=== PATIENT | male | born 1965 | race Asian ===

== ENCOUNTER → 2024-09-06 | Outpatient (CLI) | payer BC, SELFPAY ==
[2024-09-06 11:41] LABS: Albumin, Serum 4.6 gm/dL (3.4-4.8); Anion Gap 5 (7-16); BUN/Creatinine Ratio 24 Ratio (12-20); Blood Urea Nitrogen 19 mg/dL (9-23); Calcium 9.9 mg/dL (8.3-10.6); Calcium (Corrected) 9.9 mg/dL (8.5-10.1); Carbon Dioxide 22.7 mMol/L (20.0-31.0); Chloride 108 mMol/L (98-107); Creatinine (Component) 0.8 mg/dL (0.6-1.3); Glucose 92 mg/dL (74-106); Osmolality,Calculated 274 (275-295); Phosphorous 2.9 mg/dL (2.4-5.1); Potassium 4.3 mMol/L (3.4-5.1); Sodium 136 mMol/L (136-145); eGFR > 60 See Note
== END | disposition home or self-care (01) ==
LOC: COPL 10:18
PROVIDERS: PCP Internal Medicine; Referring Provider Surgery; Visit Provider Surgery
DX: C61 Malignant neoplasm of prostate (principal)
CPT/HCPCS: 36415; 80069

== ENCOUNTER → 2024-10-10 | Outpatient (CLI) | payer BC, SELFPAY ==
[2024-10-10 10:28] LABS: Prostate Specific Antigen 1.23 ng/mL (0-4.00)
--- NOTE | 2024-10-10 12:00 | XR_ITS ---
Examination: CT abdomen with intravenous contrast CT pelvis with intravenous contrast 2-D coronal reconstructions 2-D sagittal reconstructions Date and time of exam:October 10, 2024 1209 hours INDICATIONS: Diagnosis malignant neoplasm prostate 4 years ago, pelvic pain 2 months, restaging COMPARISON: October 09, 2020. CTDI: vol (mGy) 6.11 DLP: (mGycm) 329 Technique: Multiple axial sections of the abdomen and pelvis have been obtained. 64 slice high-resolution scanner used. 3 mm axial sections have been obtained, post intravenous injection 60 cc Isovue-370 2-D sagittal, coronal reconstructions obtained. Low dose protocols were performed. One or more of the following dose reduction techniques were used; automated exposure control, adjustment of the mA and/or KV according to patient size, use of iterative reconstruction technique. Findings: 15 mm liver cyst No gallstones Spleen not enlarged No pancreatic or adrenal mass Abdominal aorta normal size No hydronephrosis No abdominal lymphadenopathy Normal appendix No pelvic lymphadenopathy Intact urinary bladder Prostate tissue not clearly depicted Moderate osteopenia All bones exhibit diffuse subtle sclerosis More prominent sclerosis involving the entire posterior left iliac bone axial image 200 IMPRESSION: Widespread osseous metastatic disease, most prominent posterior left iliac bone
== END | disposition home or self-care (01) ==
LOC: CCTX 09:46 → COPL 09:52 → CCTX 10-16 06:35
PROVIDERS: Referring Provider Surgery; Visit Provider Surgery
DX: C79.9 Secondary malignant neoplasm of unspecified site (principal); C61 Malignant neoplasm of prostate
CPT/HCPCS: 36415; 74177; 84153; A4649; Q9967

== ENCOUNTER → 2024-10-23 | Outpatient (CLI) | payer BC, SELFPAY ==
--- NOTE | 2024-10-23 12:30 | XR_ITS ---
Examination: Bone scan whole body, radioisotope Date and time of exam: October 23, 2024 1202 hours INDICATIONS: Diagnosis malignant neoplasm prostate post surgery 2020, shoulder pain after falling yesterday Technique: Study has been performed with intravenous administration of 23.5 mci 99M technetium MDP. Anterior, posterior whole body images are obtained. Images have been obtained including the lower extremities. Findings: Prominent focus increased isotope accumulation left pelvis, please see the CT pelvis report October 10, 2024 Shoulder uptake is symmetrical IMPRESSION: Positive bone scan, large focus of abnormal increased isotope accumulation left pelvis
== END | disposition home or self-care (01) ==
LOC: SNUC 08:12
PROVIDERS: PCP Internal Medicine; Referring Provider Surgery; Visit Provider Surgery
DX: R93.7 Abnormal findings on diagnostic imaging of other parts of musculoskeletal system (principal); C61 Malignant neoplasm of prostate
CPT/HCPCS: 78306; A9503

== ENCOUNTER → 2025-01-25 | Outpatient (CLI) | payer BC, SELFPAY ==
[2025-01-25 10:44] LABS: Prostate Specific Antigen < 0.10 ng/mL (0-4.00)
== END | disposition home or self-care (01) ==
LOC: COPL 09:45
PROVIDERS: PCP Internal Medicine; Referring Provider Surgery; Visit Provider Surgery
DX: C61 Malignant neoplasm of prostate (principal)
CPT/HCPCS: 36415; 84153

== ENCOUNTER 2025-03-07 08:00 | Outpatient (RCR) | payer BC, SELFPAY ==
--- NOTE | 2025-03-07 09:20 | CTCCONSULT_ITS ---
[facility] [address] [place], [place] [address] Consultation Note Date: 03/07/2025 MR#: [id number] Name: SABRINA DUNBAR : 1965 Dx: C61 Malignant neoplasm of prostate Referring physician. Moises Jo MD Reason for consultation. Patient with bone mets from prostate primary referred for ration oncology consultation. History of Present Illness: Patient with prostate CA with bone mets. Initial diagnosis made 09/06/2020, Brittany's grade 9 (4+5) right lobe and [place]'s grade 7 (4+3) left lobe. With PSA 31.4. Had surgery at [facility] November 2020 according to patient, and no immediate adjuvant therapy was recommended. Most recent CT abdomen pelvis 09/30/24 showed widespread osseous mets disease most prominent posterior left iliac bone. Bone scan 10/23/2024 large focus of abnormal increased isotope accumulate left pelvis. Most recent PSA less than 0.10 on 01/25/2025. Patient has recently had Lupron and Casodex initiated by Dr. Jo. Patient is now referred for palliative radiotherapy to the pelvic bony site.. Past Medical History: Surgery left lower extremity for fracture related to trauma 2019. Meds. Atorvastatin Lupron 7.5 mg monthly Casodex 50 mg a day Family history. Father had prostate cancer Brother had sinus cancer. Social History: Patient self-employed lives in [place] Review of Systems: Has mild pain relieved with OTC meds. Physical Exam: General: Adequate nourished appearing gentleman in no acute distress HEENT: Atraumatic normocephalic extraocular was intact no oral lesion no cervical or supraclavicular adenopathy CV: Chest clear to auscultation heart regular rate and rhythm ABD: Soft no organomegaly or tenderness EXT: No signs of clubbing or edema Assessment: 1. Patient with history of prostate CA, grade 9 and grade 7 right and left prostate lobes respectively. Robotic surgery [facility] November 2020. 2. Bone mets with significant involvement of left posterior ilium recent imaging studies. 3. Radiation therapy 3000 cGy via VMAT 10 fractions will be planned for patient. 4. Currently on Casodex and Lupron with most recent PSA less than 0.23 January 2025. 5 Thank you very much for allowing me to evaluate and manage this patient.. Cc: Moises Jo MD Electronically signed by: Cody Lopez MD, DABR 03/07/2025 9:18 AM
--- NOTE | 2025-03-07 09:21 | CTCTXPLN_ITS ---
[facility] [address] [place], [place] [address] Physician Clinical Treatment Planning Note Date of Service: 03/07/2025 Name: SABRINA DUNBAR D.O.B.: 1965 The patient has agreed to proceed with Radiation therapy. Tests and supporting medical records were interpreted to assist in defining the tumor location and extent of disease. Further imaging will be necessary to contour and delineate the volume to which the XRT will be provided. A. Treatment Intent: Palliative B. Modality: 6 MV C. Requested Technique: VMAT D. Treatment Site: Pelvis E. Critical structures to be contoured on plan: F. In order to accomplish this plan, I am ordering/Prescribing the followin. Simulations (s) will be performed to accomplish a reproducible treatment position, to determine optimal treatment portals/beam arrangements, to design beam modifying devices and verify treatment portals on patient prior to the commencement of Radiation Therapy. Pelvis 2. Devices; for immobilization and beam shaping: Vac-Rosita 3. CT Guidance for placement of XRT de santiago Scan area: 4. Portal images Frequency: 5. Invivo transit dose measurement once per week on all VMAT patients. 6. Special Physics Consult Requested for: 7. Other requests: G. Dose Objectives: Palliative Electronically signed by: Cody Lopez M.D. 03/07/2025 9:19 AM
--- NOTE | 2025-03-07 09:22 | CTCTXPLNST_ITS ---
Radiation Oncology Treatment Planning Sheet Name: SABRINA DUNBAR MR#: [id number] : 1965 Dx: C61 Malignant neoplasm of prostate Date of Service: 03/07/2025 Account #: ?? Pt Treatment Intent: curative palliative other: Stage: Procedure CPT # Ordered Spec. Procedure 41415 Willis Complex (set-up) 44496 pelvis 1 Willis Simple 69520 IMRT Plan 37234 1 MLC Devices VMAT 43041 3 Willis 3 D 02485 TRTMT dev Complex 42176 Vac-Rosita 1 TRTMT dev simple 84349 Basic Alex 88313 6 Special Dosimetry 81235 Spec Physics 53812 Port Films 19208 SRS Cranial/1FX 38591 SBR 5 FX or Less /ex: 5 = 5 fx 45362 IMRT Simple 38198 3000 10 IMRT Complex 43412 IGRT 70088 8 Rad del com 6-10 93968 Rad del com 11-19 84161 Cont Med Physics 22545 2 Treatment Planning 17674 1 Rad del com 20 mev 25543 Rad del inter 6-10 33108 Rad del inter 11-19 92191 Rad del simple 6-10 65392 Rad del simple 11-19 48218 Special Port Plan 47526 TRTMT dev inter 67417 Isodose Complex 60376 Isodose simple 87821 Resp Motion Mgmt Simulation 58159 Placement of Fiducial Markers 95520 Electronically Signed By: Cody Lopez MD, DABR 03/07/2025 9:20 AM
== END 2025-03-24 23:59 | disposition home or self-care (01) ==
LOC: SCTC 08:00
PROVIDERS: Referring Provider Surgery; Visit Provider Radiology Therapeutic Radiology
DX: C61 Malignant neoplasm of prostate (principal); C79.51 Secondary malignant neoplasm of bone; Z90.79 Acquired absence of other genital organ(s); Z79.818 Long term (current) use of other agents affecting estrogen receptors and estrogen levels
CPT/HCPCS: 99213; G0463

== ENCOUNTER 2025-04-17 08:48 | Outpatient (RCR) | payer BC, SELFPAY ==
--- NOTE | 2025-03-29 13:41 | CTCSNOTE_ITS ---
[facility] [address] [place], [place] [address] CT Simulation Note Date: 03/28/2025 MR# [id number] Name: SABRINA DUNBAR : 1965 (A) DIAGNOSIS: C61 Malignant neoplasm of prostate (B) Patient was placed in SUPINE position and used VAKLOK for immobilization purposes. (C) CT slices included PELVIS (D) VMAT Will be needed for maximum sparing of adjacent normal critical structures. (E) Patient tolerated the simulation well and left the room in good condition. Electronically signed by: Cody Lopez MD, DABR 03/29/2025 1:38 PM
== END 2025-04-23 23:59 | disposition home or self-care (01) ==
LOC: SCTC 08:48
PROVIDERS: Referring Provider Radiology Therapeutic Radiology; Visit Provider Radiology Therapeutic Radiology
DX: Z51.0 Encounter for antineoplastic radiation therapy (principal); C61 Malignant neoplasm of prostate; C79.51 Secondary malignant neoplasm of bone; Z79.818 Long term (current) use of other agents affecting estrogen receptors and estrogen levels
CPT/HCPCS: 77014; 77290; 77334; 77336; 77385; 99424; 99425

== ENCOUNTER 2025-04-26 10:19 | Outpatient (RCR) | payer BC, SELFPAY ==
--- NOTE | 2025-04-26 10:46 | CTCTSUMM_ITS ---
[facility] [address] [place], [place] [address] Treatment Summary Date: 04/26/2025 MR#: [id number] Name: SABRINA DUNBAR : 1965 Dx: C61 Referring Physician: Moises Jo (A) Diagnosis: [ICD10] C61 Malignant neoplasm of prostate; [ICD10] C79.51 Secondary malignant neoplasm of bone (B) Aim of Treatment: ??palliative (C) Concomitant Chemotherapy: No (D) Radiation Dates: 04/04/2025 through 04/18/2025 Treatment Prescription L pelvis VMAT 6 MV PHOT 3,000 cGy 10 300 cGy Approved (E) All de santiago were treated using customized MLC Blocks (F) Finding at Discharge: Patient seen for first follow-up on 04/26/2025. Pain was better overall. Will now check his PSA. (G) Discharge Instructions and F/U Appt was given: The patient was also advised to continue follow-up with Dr. Jo and primary care physician: Electronically signed by: Cody oLpez MD, LAW 04/26/2025 10:44 AM
== END 2025-05-24 23:59 | disposition home or self-care (01) ==
LOC: SCTC 10:19
PROVIDERS: Referring Provider Radiology Therapeutic Radiology; Visit Provider Radiology Therapeutic Radiology
DX: C61 Malignant neoplasm of prostate (principal); C79.51 Secondary malignant neoplasm of bone; Z92.3 Personal history of irradiation
CPT/HCPCS: 99212; G0463

== ENCOUNTER → 2025-04-26 | Outpatient (CLI) | payer BC, SELFPAY ==
[2025-04-26 12:45] LABS: Prostate Specific Antigen < 0.10 ng/mL (0-4.00)
== END | disposition home or self-care (01) ==
LOC: SCTO 10:56
PROVIDERS: PCP Internal Medicine; Referring Provider Radiology Therapeutic Radiology; Visit Provider Radiology Therapeutic Radiology
DX: C61 Malignant neoplasm of prostate (principal); C79.51 Secondary malignant neoplasm of bone
CPT/HCPCS: 36415; 84153

== ENCOUNTER → 2025-08-29 | Outpatient (CLI) | payer BC, SELFPAY ==
[2025-08-29 13:32] LABS: Prostate Specific Antigen < 0.10 ng/mL (0-4.00)
== END | disposition home or self-care (01) ==
LOC: COPL 12:16
PROVIDERS: PCP Internal Medicine; Referring Provider Surgery; Visit Provider Surgery
DX: C61 Malignant neoplasm of prostate (principal)
CPT/HCPCS: 36415; 84153